=== PATIENT | female | born 1965 | race Caucasian/White ===

== ENCOUNTER → 2017-08-20 | Outpatient (CLI) | payer BC ==
--- NOTE | 2017-08-24 08:15 | MM ---
Reason for exam: screening (asymptomatic). Last mammogram was performed 1 year and 8 months ago. History: Patient is postmenopausal. Family history of breast cancer in maternal grandmother and breast cancer in paternal grandmother. Physical Findings: A clinical breast exam by your physician is recommended on an annual basis and results should be correlated with mammographic findings. MG Screening Mammo w CAD Bilateral CC and MLO view(s) were taken. Prior study comparison: December 25, 2015, bilateral MG screening mammo w CAD. October 05, 2014, bilateral MG screening mammo w CAD. There are scattered fibroglandular densities. There is chronic nodularity in the left breast. Focal asymmetry 12 o'clock right breast middle position, stable. ASSESSMENT: Benign, BI-RAD 2 RECOMMENDATION: Routine screening mammogram of both breasts in 1 year.
== END | disposition home or self-care (01) ==
LOC: RADMAMWWP 14:53
PROVIDERS: ATTEND Obstetrics & Gynecology
DX: Z12.31 Encounter for screening mammogram for malignant neoplasm of breast (principal)
CPT/HCPCS: 77067

== ENCOUNTER → 2020-04-12 | Outpatient (CLI) | payer OTHER ==
--- NOTE | 2020-04-12 10:29 | US ---
EXAMINATION TYPE: US pelvic complete DATE OF EXAM: 04/12/2020 COMPARISON: NONE CLINICAL HISTORY: R10.2 PELVIC PAIN. Pelvic pain x 1 year, 3, para 3, history of uterine abla tion 10 years ago, history of tubal ligation TECHNIQUE: . Transabdominal sonographic images of the pelvis were acquired. Transvaginal sonographi c images were medically necessary to better assess the following anatomy: uterus, endometrium, and ov loren Date of LMP: 10 years ago EXAM MEASUREMENTS: Uterus: 5.7 x 2.2 x 2.9 cm Endometrial Stripe: 0.2 cm Right Ovary: not seen Left Ovary: not seen 1. Uterus: anteverted, heterogeneous 2. Endometrium: appears wnl 3. Right Ovary: not seen due to overlying bowel gas 4. Left Ovary: not seen due to overlying bowel gas 5. Bilateral Adnexa: wnl 6. Posterior cul-de-sac: wnl IMPRESSION: 1. Unremarkable pelvic ultrasound. 2. Exam is limited due to bowel gas.
== END | disposition home or self-care (01) ==
LOC: RADUSWWP 08:14
PROVIDERS: ATTEND Pediatrics
DX: R14.3 Flatulence (principal); R10.2 Pelvic and perineal pain
CPT/HCPCS: 76830; 76856

== ENCOUNTER → 2020-05-17 | Outpatient (CLI) | payer OTHER ==
--- NOTE | 2020-05-18 14:51 | MM ---
Reason for exam: screening (asymptomatic). Last mammogram was performed 2 years and 9 months ago. History: Patient is postmenopausal. Family history of breast cancer in maternal grandmother and breast cancer in paternal grandmother. Took hormonal contraceptives for 1 year. Physical Findings: A clinical breast exam by your physician is recommended on an annual basis and results should be correlated with mammographic findings. MG Screening Mammo w CAD Bilateral CC and MLO view(s) were taken. Prior study comparison: August 20, 2017, bilateral MG screening mammo w CAD. December 25, 2015, bilateral MG screening mammo w CAD. There are scattered fibroglandular densities. There is chronic nodularity in the left breast. There is no discrete abnormality. ASSESSMENT: Negative, BI-RAD 1 RECOMMENDATION: Routine screening mammogram of both breasts in 1 year.
== END ==
LOC: RADMAMWWP 16:13
PROVIDERS: ATTEND Obstetrics & Gynecology
DX: Z12.31 Encounter for screening mammogram for malignant neoplasm of breast (principal); Z80.3 Family history of malignant neoplasm of breast; Z78.0 Asymptomatic menopausal state
CPT/HCPCS: 77067

== ENCOUNTER → 2020-10-08 | Outpatient (CLI) | payer OTHER ==
--- NOTE | 2020-10-08 10:46 | US ---
EXAMINATION TYPE: US venous doppler duplex LE RT DATE OF EXAM: 10/08/2020 9:54 AM COMPARISON: NONE CLINICAL HISTORY: 55-year-old female I82.401 RT DISTAL PRETIBIAL REGION. Right lower leg pain SIDE PERFORMED: Right TECHNIQUE: The lower extremity deep venous system is examined utilizing real time linear array sonog margot with graded compression, doppler sonography and color-flow sonography. FINDINGS: VESSELS IMAGED: Common Femoral Vein Deep Femoral Vein Greater Saphenous Vein * Femoral Vein Popliteal Vein Small Saphenous Vein * Proximal Calf Veins (* superficial vessels) Right Leg: Appears negative for DVT IMPRESSION: No evidence for DVT within the right lower extremity imaged from the groin to the upper calf.
== END | disposition home or self-care (01) ==
LOC: RADUSWWP 09:27
PROVIDERS: ATTEND Dermatology MOHS-Micrographic Surgery
DX: I82.401 Acute embolism and thrombosis of unspecified deep veins of right lower extremity (principal)

== ENCOUNTER → 2023-01-31 | Outpatient (CLI) | payer OTHER ==
[2023-01-31 22:49] LABS: Basophils # (A) 0.04 X 10*3/uL (0.00-0.10); Basophils % (A) 0.7 %; Eosinophils % (A) 3.7 %; HCT 42.1 % (37.2-46.3); HGB 13.2 g/dL (12.0-15.0); Lymphocytes # (A) 0.75 X 10*3/uL (0.90-5.00); MCHC 31.4 g/dL (32.0-37.0); MCV 86.3 FL (80.0-97.0); Mean Platelet Volume 12.1 FL (9.5-12.2); Monocytes # (A) 0.42 X 10*3/uL (0.20-1.00); Monocytes % (A) 7.8 %; NRBC Per 100 WBC 0 X 10*3/uL (0.00-0.01); Neutrophils # (A) 3.93 X 10*3/uL (1.80-7.70); Neutrophils % (A) 73.2 %; Platelet Count 123 X 10*3/uL (140-440); RBC 4.88 X 10*6/uL (4.10-5.20); RDW 14.2 % (11.5-14.5); WBC 5.37 X 10*3/uL (4.50-10.00)
[2023-01-31 23:14] LABS: ALT 24 U/L (8-44); AST 20 U/L (13-35); Albumin 4.1 g/dL (3.8-4.9); Albumin/Globulin Ratio 1.78 Ratio (1.60-3.17); Alkaline Phosphatase 84 U/L (41-126); Appearance,Urine Clear (Clear); Bilirubin,Urine Negative (Negative); Blood Urea Nitrogen 11.1 mg/dL (9.0-27.0); Blood,Urine Moderate (Negative); Calcium 9.3 mg/dL (8.7-10.3); Chloride 102 mmol/L (96-109); Color,Urine Yellow (Yellow); Globulin 2.3 g/dL (1.6-3.3); Glucose 108 mg/dL (70-110); Ketones,Urine Negative (Negative); Nitrite,Urine Negative (Negative); PH, Urine 6.5; Potassium 4.8 mmol/L (3.5-5.5); Sodium 141 mmol/L (135-145); Specific Gravity,Urine 1.022 (1.001-1.030); Total Bilirubin 0.3 mg/dL (0.3-1.2); Total Protein 6.4 g/dL (6.2-8.2)
[2023-01-31 23:38] LABS: Bacteria,Urine Trace
== END | disposition home or self-care (01) ==
LOC: LABPAT 09:53
PROVIDERS: ATTEND Urology
DX: Z01.812 Encounter for preprocedural laboratory examination (principal); I45.4 Nonspecific intraventricular block; N39.3 Stress incontinence (female) (male); I10 Essential (primary) hypertension; Z79.899 Other long term (current) drug therapy; R31.29 Other microscopic hematuria; R94.31 Abnormal electrocardiogram [ECG] [EKG]
CPT/HCPCS: 80053; 81001; 85025; 86850; 86900; 86901; 87086; 93005

== ENCOUNTER 2023-02-11 05:33 | Observation (INO) | payer OTHER ==
--- NOTE | 2023-02-10 19:19 | P.GSHP ---
History of Present Illness H&P Date: 02/10/23 57 yo female with pelvic prolapse and matt. She comes for a robotic assisted hysterectomy , ant repair [ Dr Flores] and a tot by me. The risks , complications and alternatives have been discussed. - Constitutional Constitutional: Denies chills, Denies fever - EENT Eyes: denies blurred vision, denies pain Ears, nose, mouth and throat: Denies headache, Denies sore throat - Cardiovascular Cardiovascular: Denies chest pain, Denies shortness of breath - Respiratory Respiratory: Denies cough, Denies 7 - Gastrointestinal Gastrointestinal: Denies abdominal pain, Denies diarrhea, Denies nausea, Denies vomiting - Genitourinary (Female) Genitourinary: Denies dysuria, Denies hematuria - Genitourinary (Male) Genitourinary: Denies dysuria, Denies hematuria - Musculoskeletal Musculoskeletal: Denies myalgias - Integumentary Integumentary: Denies pruritus, Denies rash - Neurological Neurological: Denies numbness, Denies weakness - Psychiatric Psychiatric: Denies anxiety, Denies depression - Endocrine Endocrine: Denies fatigue, Denies weight change Past Medical History Past Medical History: Hyperlipidemia, Osteoarthritis (OA), Thyroid Disorder Additional Past Medical History / Comment(s): hx of edema to rt.- controlled with lasix. urinary leakage and urgency. painful bladder syndrome. rt knee arthritis History of Any Multi-Drug Resistant Organisms: None Reported Past Surgical History: Ablation Additional Past Surgical History / Comment(s): colonoscopy. ctr rt. Past Anesthesia/Blood Transfusion Reactions: No Reported Reaction Smoking Status: Former smoker - Past Family History Mother Family Medical History: Hypertension Additional Family Medical History / Comment(s): anxiety Father Family Medical History: Cancer Additional Family Medical History / Comment(s): prostate and lung. hx cancer with grandparents both sides Medications and Allergies Home Medications Medication Instructions Recorded Confirmed Type Amitriptyline HCl [Elavil] 75 mg PO HS 02/05/23 02/05/23 History Atorvastatin [Lipitor] 10 mg PO HS 02/05/23 02/05/23 History Celecoxib 200 mg PO DAILY 02/05/23 02/05/23 History Ergocalciferol [Vitamin D2 (1250 1,250 mcg PO TH 02/05/23 02/05/23 History Mcg = 64657 Iu)] Furosemide [Lasix] 20 mg PO DAILY 02/05/23 02/05/23 History Levothyroxine Sodium [Synthroid] 75 mcg PO DAILY 02/05/23 02/05/23 History Oxybutynin Chloride [oxyBUTYnin 10 mg PO DAILY 02/05/23 02/05/23 History chloride ER] Sertraline [Zoloft] 100 mg PO DAILY 02/05/23 02/05/23 History Allergies Allergy/AdvReac Type Severity Reaction Status Date / Time No Known Allergies Allergy Verified 02/05/23 15:47 Surgical - Exam - General well developed, well nourished, no distress - Eyes normal ocular movement, no icteric - ENT no hearing loss, no congestion - Neck no masses, trachea midline - Respiratory normal respiratory effort, clear to auscultation - Abdomen Abdomen: soft, non tender, no guarding, no rigid, no rebound - Genitourinary hyper mobile urethra with matt - Integumentary no rash, no abnormal pigmentation - Neurologic no disoriented, no combative - Psychiatric oriented to time, oriented to person, oriented to place, speech is normal, memory intact Assessment and Plan Assessment: Impression: pelvic prolapse, matt Plan robotic assisted hysterectomy, anterior repair, tot with obtyrx graft
[~2023-02-11 05:33] MED LIST: AMPICILLIN 1,000 MG in SODIUM CHLORIDE 0.9% 50 ML IVPB PRN; GENTAMICIN 100 MG in SODIUM CHLORIDE 0.9% 100 ML IVPB PRN
[2023-02-11] MEDS ORDERED: LACTATED RINGERS 1,000 ML IV ONE ×2 (06:16→08:31)
[2023-02-11 06:32] LABS: African American GFR (CKD) >90 (>60 ml/min/1.73 sqM); Anion Gap 11 mmol/L; Blood Urea Nitrogen 13 mg/dL (7-17); Calcium 9.3 mg/dL (8.4-10.2); Carbon Dioxide 25 mmol/L (22-30); Chloride 102 mmol/L (98-107); Glucose 107 mg/dL (74-99); Non-African American GFR(CKD) >90 (>60 ml/min/1.73 sqM); Sodium 138 mmol/L (137-145)
[2023-02-11 06:33] LABS: Potassium 4.7 mmol/L (3.5-5.1)
[2023-02-11] MEDS ORDERED: ONDANSETRON 4 MG/2 ML VIAL IVP ONE (06:33)
[2023-02-11] MEDS ORDERED: DEXAMETHASONE SOD PHOSPHATE 4 MG/ML 1 ML VIAL IVP ONE (06:34)
[2023-02-11] MEDS ORDERED: fentaNYL (PF) 50 MCG/ML 2 ML AMP IVP ONE (06:38)
[2023-02-11] MEDS ORDERED: MIDAZOLAM 2 MG/2 ML VIAL IVP ONE (06:38)
[2023-02-11] MEDS ORDERED: SCOPOLAMINE 1 MG/72 HR PATCH TRANSDERM ONE (06:54)
--- NOTE | 2023-02-11 07:09 | P.HPOB ---
History of Present Illness H&P Date: 02/11/23 Chief Complaint: pelvic organ prolapse 57 year old P3 presents for [facility] BSO using da ramon, anterior repair, and TOT by Dr Donaldson. Review of Systems All systems: negative Constitutional: Denies chills, Denies fever Eyes: denies blurred vision, denies pain Ears, nose, mouth and throat: Denies headache, Denies sore throat Cardiovascular: Denies chest pain, Denies shortness of breath Respiratory: Denies cough Gastrointestinal: Denies abdominal pain, Denies diarrhea, Denies nausea, Denies vomiting Genitourinary: Denies dysuria, Denies hematuria Musculoskeletal: Denies myalgias Integumentary: Denies pruritus, Denies rash Neurological: Denies numbness, Denies weakness Psychiatric: Denies anxiety, Denies depression Endocrine: Denies fatigue, Denies weight change Past Medical History Past Medical History: Hyperlipidemia, Osteoarthritis (OA), Thyroid Disorder Additional Past Medical History / Comment(s): hx of edema to rt.- controlled with lasix. urinary leakage and urgency. painful bladder syndrome. rt knee arthritis History of Any Multi-Drug Resistant Organisms: None Reported Past Surgical History: Ablation Additional Past Surgical History / Comment(s): colonoscopy. ctr rt. Past Anesthesia/Blood Transfusion Reactions: No Reported Reaction Smoking Status: Former smoker - Past Family History Mother Family Medical History: Hypertension Additional Family Medical History / Comment(s): anxiety Father Family Medical History: Cancer Additional Family Medical History / Comment(s): prostate and lung. hx cancer with grandparents both sides Medications and Allergies Home Medications Medication Instructions Recorded Confirmed Type Amitriptyline HCl [Elavil] 75 mg PO HS 02/05/23 02/05/23 History Atorvastatin [Lipitor] 10 mg PO HS 02/05/23 02/05/23 History Celecoxib 200 mg PO DAILY 02/05/23 02/05/23 History Ergocalciferol [Vitamin D2 (1250 1,250 mcg PO TH 02/05/23 02/05/23 History Mcg = 99835 Iu)] Furosemide [Lasix] 20 mg PO DAILY 02/05/23 02/05/23 History Levothyroxine Sodium [Synthroid] 75 mcg PO DAILY 02/05/23 02/05/23 History Oxybutynin Chloride [oxyBUTYnin 10 mg PO DAILY 02/05/23 02/05/23 History chloride ER] Sertraline [Zoloft] 100 mg PO DAILY 02/05/23 02/05/23 History Allergies Allergy/AdvReac Type Severity Reaction Status Date / Time No Known Allergies Allergy Verified 02/05/23 15:47 Exam Osteopathic Statement: *. No significant issues noted on an osteopathic structural exam other than those noted in the History and Physical/Consult. Vital Signs Temp Pulse Resp BP Pulse Ox 02/11/23 06:47 73 16 122/61 98 02/11/23 05:59 97.1 F L 82 18 136/83 98 Intake and Output 02/10/23 02/11/23 02/11/23 22:59 06:59 14:59 Other: Weight 90.8 kg Heart: Regular rate and rhythm Lungs: Clear to auscultation bilaterally Abdomen: Soft, nontender Extremities: Negative Homans sign Results Result Diagrams: 02/11/23 06:13 Abnormal Lab Results - Last 24 Hours (Table) 02/11/23 Range/Units 06:13 Glucose 107 H (74-99) mg/dL Assessment and Plan (1) Pelvic organ prolapse quantification stage 2 cystocele Current Visit: Yes Status: Acute Code(s): N81.10 - CYSTOCELE, UNSPECIFIED SNOMED Code(s): 169578635 Plan: 1. [facility] BSO, anterior repair and TOT by Dr Donaldson.
[2023-02-11] MEDS ORDERED: PHENYLEPHRINE-0.9% NACL SYG 1,000 MCG/10 ML SYRINGE ONE (07:17)
[2023-02-11] MEDS ORDERED: LIDOCAINE 1% INJ 10MG/ML (20 ML MDV) ONE (07:17)
[2023-02-11] MEDS ORDERED: KETOROLAC 15 MG/ML 1 ML VIAL ONE (07:17)
[2023-02-11] MEDS ORDERED: SUCCINYLCHOLINE CHLORIDE 200 MG/10 ML VIAL IV ONE (07:17)
[2023-02-11] MEDS ORDERED: PROPOFOL 10 MG/ML 20 ML VIAL IV ONE (07:17)
[2023-02-11] MEDS ORDERED: ROCURONIUM 10 MG/ML (5 ML VIAL) IV ONE (07:17)
[2023-02-11] MEDS ORDERED: NEOSTIGMINE 1 MG/ML 10 ML VIAL ONE (07:17)
[2023-02-11] MEDS ORDERED: MORPHINE SULFATE (PF) 0.3 MG/0.3 ML SYR ONE (07:17)
[2023-02-11] MEDS ORDERED: fentaNYL (PF) 50 MCG/ML 2 ML AMP ONE (07:17)
[2023-02-11] MEDS ORDERED: GLYCOPYRROLATE 0.2 MG/ML 2 ML VIAL ONE (07:17)
[2023-02-11] MEDS ORDERED: BACITRACIN ZINC 500 UNIT/GM OINT 28.4 GM TUBE TOPICAL ONE ×2 (08:07→08:56)
[2023-02-11] MEDS ORDERED: BUPIVACAINE (PF) 0.25% 30 ML VIAL SQ ONE ×2 (08:07→08:56)
[2023-02-11] MEDS ORDERED: GENTAMICIN IN NACL ISO-OSM PMX 80 MG/100 ML BAG IVPB ONE ×2 (08:08→08:57)
[2023-02-11] MEDS ORDERED: VASOPRESSIN 20 UNIT/ML 1 ML VIAL IM ONE ×3 (08:11→08:57)
[2023-02-11] MEDS ORDERED: ONDANSETRON 4 MG/2 ML VIAL IVP PRN (08:52)
[2023-02-11] MEDS ORDERED: NALOXONE 0.4 MG/ML 1 ML VIAL IV PRN (08:52)
[2023-02-11] MEDS ORDERED: HYDROmorphone 0.5 MG/0.5 ML SYRINGE IVP PRN (08:52)
[2023-02-11] MEDS ORDERED: diphenhydrAMINE 50 MG/ML 1 ML VIAL IVP PRN (08:52)
--- NOTE | 2023-02-11 08:52 | P.ANPRN ---
Procedure Note - Anesthesia - Epidural/Spinal Spinal Time Out Performed: Yes Date of Procedure: 02/11/23 Procedure Start Time: 06:38 Procedure Stop Time: 06:45 Location of Patient: PreOp Indication: Acute Post-Operative Pain, Requested by Surgeon Sedation Type: Sedate with meaningful contact maintained Preparation: Sterile Prep Position: Sitting Needle Guage: 25 Blood Aspirated: No Pain Paresthesia on Injection Noted: No Events: Uneventful and Well Tolerated (fentanyle 25 mcg + 300 mcg duramorph injected intrathecally)
--- NOTE | 2023-02-11 09:21 | P.OP ---
Date of Procedure: 02/11/23 Preoperative Diagnosis: matt Postoperative Diagnosis: same Procedure(s) Performed: cysto with transobturator tape[obtyrx 2] Surgeon: Aftab Donaldson Estimated Blood Loss (ml): 50 Pathology: none sent Condition: stable Disposition: PACU Indications for Procedure: The patient's in the hospital today for a robotic-assisted laparoscopic hysterectomy and a trans-obturator tape for her stress incontinence by myself. Description of Procedure: Patient's previously been in the operating room. Dr. Flores did a total abdominal hysterectomy robotic-assisted. I entered the procedure. There is slight pink tinge in the urine. The labia are sewn laterally with 2-0 silk. A vaginal speculum was introduced. The anterior vaginal mucosa was elevated off the submucosa with a mixture of 200 mL of saline and 20 g of Pitressin. A midline suburethral incision is made. I dissect lateral the bladder neck bilaterally. 2 inguinal incisions at the level clitoris are made. I passed introducers into the vaginal space bilaterally through the obturator foramen. I then remove the catheter and do cystoscopy. I see there is irritation in the posterior bladder wall from the catheter. That is the cause of the bleeding. There is no evidence of injury to the bladder. There is no evidence of the bladder from the passage of the needles for the trans-obturator sling. I removed the cystoscope and replaced the Calvert. Attached the grafted introducers and pull back through the inguinal incisions. The graft lay in the mid urethra nicely. I removed the redundant sheeting. I closed the vaginal mucosa with 2-0 Vicryl. I closed the inguinal incisions with 3-0 Vicryl. A vaginal packing is placed. The patient is awake and returned recovery room good condition. The blood loss from my standpoint is less than 50 mL. She tolerated procedure well awake and returned recovery room good c ondition.
--- NOTE | 2023-02-11 09:23 | P.OP ---
Date of Procedure: 02/11/23 Preoperative Diagnosis: 1. pelvic organ prolapse 2. PARVEZ Postoperative Diagnosis: same Procedure(s) Performed: Total laparoscopic hysterectomy bilateral salpingo-oophorectomy using da Cecilia and TOT by Dr. De Paz Anesthesia: JENNIFER Surgeon: Ally Flores General Maintenance Helper #1: Tequila Jaime Estimated Blood Loss (ml): 530 IV fluids (ml): 1,000 Urine output (ml): 200 Pathology: other (uterus, cervix, bilateral tubes and ovaries) Condition: stable Disposition: PACU Operative Findings: Uterus, tubes, ovaries. redundant bowel an redundant bladder. Description of Procedure: Patient taken the operating room where general anesthesia was obtained without difficulty. She is prepped and draped in normal sterile fashion dorsal lithotomy position, legs placed in the Hunter stirrups. Weighted speculum placed in the vagina and the anterior lip the cervix was grasped with single-tooth tenaculum. The uterus sounded to 9 cm and the cervix diameter was 3.5 cm. The appropriate manipulator tip and ring were placed on the Cecy manipulator. The Cecy manipulator was then placed in the uterus. Calvert catheter was also placed. Attention was then turned to the abdomen and gloves were changed. A 5 mm supraumbilical incision was made the scalpel and a 5 mm optical trocar was placed under direct visualization. 10 cm to the right of this and 2 cm down a 5 mm incision was made and 8 mm da Cecilia port was placed under direct visualization. Same measurements on the opposite side of the patient's abdomen, the 5 mm incision was made and 8 mm da Cecilia port was placed under direct visualization. In the left upper quadrant a 10 mm incision was made and a 10 mm optical trocar was placed under direct visualization. The 5 mm optical trocar was then replaced with the 8 mm da Cecilia camera port. The robot was docked on patient's right side. The camera was introduced and then the monopolar curved scissor and the vessel sealer under direct visualization. I broke scrub and went to the physician console. The pelvis appeared normal there were a few adhesions from the bowel to the left pelvic sidewall. Of note the bowel was redundant and difficulty and out of the pelvis. The bladder also seemed to have some redundant tissue. The left infundibulopelvic ligament was sealed and cut with the vessel sealer. The left round ligament was sealed and cut with the vessel sealer. The posterior leaf of the broad ligament was taken down using the monopolar curved scissors. Anterior leaf of the broad ligament was then taken down using the monopolar curved scissors. The uterine artery was sealed and cut with the vessel sealer. The bladder flap was then started using the monopolar curved scissors. Attention was then turned to the right side of the patient's anatomy and the right infundibular pelvic ligament was cauterized with the [place] bipolar and cut with monopolar curved scissors. The right round ligament was sealed and cut with the vessel sealer. Posterior leaf of the broad ligament was taken down using the monopolar curved scissors and the anterior leaf was taken down using the monopolar curved scissors. The uterine artery was cauterized the [place] bipolar cut with monopolar curved scissors. The bladder flap was then finished on this side. Anterior colpotomy was made using the monopolar curved scissors. The rest of the uterus was from the vaginal cuff by following the ring around with the monopolar curved scissors through the uterosacral ligaments back to the anterior portion. Once the uterus and cervix were amputated they were pulled through the vaginal cuff. Hemostasis to close to assure considering it was difficult to see the vaginal cuff. The instruments were changed for the Cardier forcep and the irma suture cut. The vaginal cuff was then attempted to be closed using O stratafix barbed suture, however, there was some significant bleeding coming from the vaginal cuff and was difficult visualization. I scrubbed back in to close the vagina vaginally. Weighted speculum was placed in the vagina. The cuff was grasped with some hemostats. The vaginal cuff was closed with 0 Vicryl in a running locked fashion. Hemostasis from below was assured.. Hemostasis was again assured through the laparoscope and the pelvis was irrigated. All instruments were removed from the abdomen and the robot was undocked. The abdominal incisions were closed with 4-0 Vicryl in a subcuticular fashion. At this time Dr. De Paz stepped in to do the trans obturator tape. Patient tolerated the procedure well, sponge and instrument counts correct 2 and she was taken to recovery room in stable condition condition
[2023-02-11] MEDS ORDERED: SIMETHICONE 80 MG CHEWABLE PO PRN (10:40)
[2023-02-11] MEDS ORDERED: Acetaminophen-Codeine 300-30mg TAB PO PRN ×2 (10:40)
[2023-02-11] MEDS ORDERED: METOCLOPRAMIDE 5 MG/ML 2 ML VIAL IVP PRN (10:40)
[2023-02-11] MEDS: DEXTROSE 5%-0.45% NACL 1,000 ML IV SCH ×2 (11:40→23:47)
[2023-02-11] MEDS: KETOROLAC 15 MG/ML 1 ML VIAL IVP PRN ×2 (13:42→23:38)
[2023-02-11] MEDS: ATORVASTATIN 10 MG TAB PO SCH (21:22)
[2023-02-11] MEDS: AMITRIPTYLINE HCL 25 MG TAB PO SCH (21:23)
[2023-02-11] MEDS: ACETAMINOPHEN TAB 325 MG TAB PO PRN (22:41)
[2023-02-12] MEDS: ACETAMINOPHEN TAB 325 MG TAB PO PRN ×2 (03:57→20:02)
[2023-02-12] MEDS: KETOROLAC 15 MG/ML 1 ML VIAL IVP PRN (05:14)
[2023-02-12] MEDS: LEVOTHYROXINE 75 MCG TAB PO SCH (05:36)
--- NOTE | 2023-02-12 06:55 | P.PN ---
Progress Note - Text Progress Note Date: 02/12/23 Ms. Alba is a 57 -year-old female had a history of Total laparoscopic hysterectomy bilateral salpingo-oophorectomy, spinal with Astramorph 300 g for postop pain. Today patient is comfortable sitting in her bed. Today patient rated her pain level 1 out of 10 in severity. Denied any fever, drowsiness, confusion. Denied any weakness, tingling sensation in her lower extremities. Denied any bowel or bladder problems. Moving all extremities without any difficulty. Able to walk without any difficulties. Vitals: Hemodynamically stable Continue oral pain medication as per primary team.
--- NOTE | 2023-02-12 07:33 | P.PN ---
Subjective Progress Note Date: 02/12/23 The patient is in her first postoperative day from a robotic-assisted laparoscopic hysterectomy and a trans-obturator tape. She feels well. Her catheter and packing have been pulled. Objective - Vital Signs Vital signs: Vital Signs Temp 97.4 F L 02/12/23 05:32 Pulse 77 02/12/23 05:32 Resp 19 02/12/23 05:32 BP 103/68 02/12/23 05:32 Pulse Ox 96 02/12/23 05:32 FiO2 Intake & Output 02/11/23 02/12/23 02/12/23 18:59 06:59 18:59 Intake Total 1502.5 960 Output Total 1300 1300 Balance 202.5 -340 Weight 90.8 kg Intake: IV 1502.5 Oral 960 Output: Urine 700 1300 Uretheral (Calvert) 400 Estimated Blood Loss 600 Other: Voiding Method Indwelling Catheter Indwelling Catheter - Labs CBC & Chem 7: 02/11/23 06:13 Assessment and Plan Assessment: Impression: Postoperative day #1 hysterectomy and bladder neck suspension Recommendations: If the patient urinates without problem she can be discharged home from a urologic standpoint. I would see her in the office in one week. If she doesn't urinate adequately I replaced the Calvert and reassess in the morning
[2023-02-12 08:13] LABS: Basophils % (A) 0 %; Eosinophils # (A) 0.1 k/uL (0-0.7); Eosinophils % (A) 2 %; HCT 33.5 % (34.0-46.0); Lymphocytes # (A) 0.8 k/uL (1.0-4.8); Lymphocytes % (A) 10 %; MCH 27.8 pg (25.0-35.0); MCHC 32.7 g/dL (31.0-37.0); MCV 84.9 fL (80.0-100.0); Mean Platelet Volume 8.5; Monocytes # (A) 0.5 k/uL (0-1.0); Monocytes % (A) 6 %; Neutrophils # (A) 5.9 k/uL (1.3-7.7); Neutrophils % (A) 80 %; Platelet Count 176 k/uL (150-450); RBC 3.94 m/uL (3.80-5.40); RDW 14.8 % (11.5-15.5); WBC 7.4 k/uL (3.8-10.6)
[2023-02-12] MEDS: MELOXICAM 7.5 MG TAB PO SCH (08:27)
[2023-02-12] MEDS ORDERED: SERTRALINE 100 MG TAB PO SCH (09:00)
[2023-02-12] MEDS ORDERED: ERGOCALCIFEROL 1,250 MCG (50,000 IU) CAPSULE PO SCH (09:00)
[2023-02-12] MEDS ORDERED: FUROSEMIDE 20 MG TAB PO SCH (09:00)
[2023-02-12] MEDS ORDERED: ACETAMINOPHEN TAB 325 MG TAB PO PRN (09:03)
--- NOTE | 2023-02-12 11:24 | P.DS ---
Providers Date of admission: 02/12/23 07:47 Expected date of discharge: 02/12/23 Attending physician: Aftab Donaldson Primary care physician: Aman Ambrocio - Discharge Diagnosis(es) (1) Pelvic organ prolapse quantification stage 2 cystocele Current Visit: Yes Status: Resolved (2) S/P robot-assisted surgical procedure Current Visit: Yes Status: Acute Hospital Course: Patient presented for a [facility] BSO using da Cecilia and the OT by Dr. De Paz. She underwent this procedure without complication. Postoperative course was uneventful. She denies nausea, vomiting, chest and, shortness of breath or calf pain. She is cleared from urology standpoint as long as she can urinate. She is cleared from my standpoint as she was passing gas and tolerating a regular diet and her hemoglobin is stable and she's not bleeding. She will be discharged home postoperative day #1 in stable condition to follow-up with me in 3 weeks. Plan - Discharge Summary Discharge Rx Participant: No New Discharge Prescriptions: No Action Amitriptyline HCl [Elavil] 75 mg PO HS Oxybutynin Chloride [oxyBUTYnin chloride ER] 10 mg PO DAILY Celecoxib 200 mg PO DAILY Furosemide [Lasix] 20 mg PO DAILY Atorvastatin [Lipitor] 10 mg PO HS Sertraline [Zoloft] 100 mg PO DAILY Levothyroxine Sodium [Synthroid] 75 mcg PO DAILY Ergocalciferol [Vitamin D2 (1250 Mcg = 29395 Iu)] 1,250 mcg PO TH Discharge Medication List Amitriptyline HCl [Elavil] 75 mg PO HS 02/05/23 [History] Atorvastatin [Lipitor] 10 mg PO HS 02/05/23 [History] Celecoxib 200 mg PO DAILY 02/05/23 [History] Ergocalciferol [Vitamin D2 (1250 Mcg = 68355 Iu)] 1,250 mcg PO TH 02/05/23 [History] Furosemide [Lasix] 20 mg PO DAILY 02/05/23 [History] Levothyroxine Sodium [Synthroid] 75 mcg PO DAILY 02/05/23 [History] Oxybutynin Chloride [oxyBUTYnin chloride ER] 10 mg PO DAILY 02/05/23 [History] Sertraline [Zoloft] 100 mg PO DAILY 02/05/23 [History] Follow up Appointment(s)/Referral(s): Aftab Donaldson MD [STAFF PHYSICIAN] - 1 Week Ally Flores DO [Doctor of Osteopathic Medicine] - 3 Weeks Patient Instructions/Handouts: *Surgery [facility] - (Anesthesia) Discharge Instructions Outpatient Surgery, *Surgery [facility] - Scopalamine Patch Instructions Discharge Disposition: HOME SELF-CARE
[2023-02-12] MEDS: ATORVASTATIN 10 MG TAB PO SCH (21:50)
[2023-02-12] MEDS: AMITRIPTYLINE HCL 25 MG TAB PO SCH (21:50)
[2023-02-13] MEDS: DEXTROSE 5%-0.45% NACL 1,000 ML IV SCH (05:04)
[2023-02-13] MEDS: LEVOTHYROXINE 75 MCG TAB PO SCH (05:35)
[2023-02-13] MEDS: ACETAMINOPHEN TAB 325 MG TAB PO PRN (05:38)
--- NOTE | 2023-02-13 07:51 | P.PN ---
Subjective Progress Note Date: 02/13/23 The patient underwent a robotic-assisted hysterectomy and a trans-obturator tape for stress incontinence by Dr. Flores and myself on 02/11/23. She is recuperating nicely. She is only able to partially empty her bladder yesterday Vesicare catheter was replaced and she was kept in the hospital overnight. We will see how she voids today. She may go home regardless. Objective - Vital Signs Vital signs: Vital Signs Temp 98.4 F 02/12/23 21:57 Pulse 90 02/12/23 21:57 Resp 19 02/12/23 21:57 BP 137/82 02/12/23 21:57 Pulse Ox 96 02/12/23 17:00 FiO2 Intake & Output 02/12/23 02/13/23 02/13/23 18:59 06:59 18:59 Intake Total 960 Output Total 3950 2600 Balance -3950 -1640 Intake: Oral 960 Output: Urine 3950 2600 Uretheral (Calvert) 800 Other: Voiding Method Indwelling Catheter Indwelling Catheter # Voids 1 - Labs CBC & Chem 7: 02/12/23 07:46 02/11/23 06:13 Labs: Abnormal Lab Results - Last 24 Hours (Table) 02/12/23 Range/Units 07:46 Hgb 11.0 L (11.4-16.0) gm/dL Hct 33.5 L (34.0-46.0) % Lymphocytes # 0.8 L (1.0-4.8) k/uL Assessment and Plan Assessment: IMpression: Postoperative robotic hysterectomy and trans-obturator tape. Recommendations: The patient's catheter will be removed. If she voids completion she'll go home without a catheter. If she still retains a lot of urine only a catheter over the weekend. This is been discussed with the patient. I will see her week to clarify the status of her voiding so as to decide whether he may have to loosen the sling. The patient was otherwise stable and understands this. Her condition is good.
[2023-02-13] MEDS: MELOXICAM 7.5 MG TAB PO SCH (08:22)
[2023-02-13 11:51] VITALS: BP 117/79; PULSE 83; RESP 16; TEMP 97.8
== END 2023-02-13 13:00 | disposition home or self-care (01) ==
LOC: OR 05:33 → 4FBP 09:12 → OR 02-12 07:47
PROVIDERS: ADMIT Urology; ATTEND Urology
DX: N81.10 Cystocele, unspecified (principal); N39.3 Stress incontinence (female) (male); E78.5 Hyperlipidemia, unspecified; E03.9 Hypothyroidism, unspecified; M17.11 Unilateral primary osteoarthritis, right knee; Z79.1 Long term (current) use of non-steroidal anti-inflammatories (NSAID); Z79.890 Hormone replacement therapy; Z79.899 Other long term (current) drug therapy; Z87.891 Personal history of nicotine dependence; Z98.890 Other specified postprocedural states; Z82.49 Family history of ischemic heart disease and other diseases of the circulatory system; Z80.9 Family history of malignant neoplasm, unspecified; Z81.8 Family history of other mental and behavioral disorders
CPT/HCPCS: 57288; 58571; 62322; S2900; 80048; 81025; 85025; 88305